=== PATIENT | female | born 1950 | race Caucasian/White ===

== ENCOUNTER 2024-05-07 11:07 | Emergency (ER) | payer MEDICARE, OTHER ==
[~2024-05-07] VITALS: Ht 157.5 cm; Wt 47.7 kg
[2024-05-07] MEDS ORDERED: NS 1,000 ML IV ONE (11:30)
[2024-05-07] MEDS ORDERED: Ondansetron 4 MG/2 ML VIAL IV ONE (11:45)
[2024-05-07] MEDS ORDERED: Morphine 4 MG/ML VIAL IV ONE ×2 (11:45→12:00)
[2024-05-07 11:49] LABS: BASO % 0.2 % (0.0-2.0); EOS % 0.1 % (0.0-4.0); GRAN # 14.7 K/mm3 (1.4-6.5); GRAN % 85.4 % (42.2-75.2); HEMATOCRIT 40.5 % (37.0-47.0); HEMOGLOBIN 14.1 g/dl (12.5-16.0); LYMPH # 1.3 K/mm3 (1.2-3.4); LYMPH % 7.7 % (20.0-51.0); MEAN CELL VOLUME 96 fl (80.0-100.0); MEAN CORPUSCULAR HEMOGLOBIN 33 pg (27-31); MEAN CORPUSCULAR HGB CONC 35 g/dl (33.0-37.0); MEAN PLATELET VOLUME 9.8 fl (7.4-10.4); MONO # 1.1 K/mm3 (0.1-0.6); MONO % 6.2 % (1.7-9.3); PLATELET COUNT 300 K/mm3 (130-400); RED BLOOD COUNT 4.23 M/mm3 (4.10-5.30)
[2024-05-07 12:02] LABS: ALBUMIN 4.2 g/dL (3.4-4.8); BILIRUBIN,TOTAL 1.4 mg/dL (0.2-1.2); CALCIUM 10.1 mg/dL (8.4-10.2); TOTAL PROTEIN 7.2 g/dl (6.2-8.1)
[2024-05-07 12:25] LABS: POTASSIUM 3.7 mEq/L (3.5-4.5)
[2024-05-07 12:38] LABS: CREATININE, serum 1.15 mg/dL (0.57-1.11)
[2024-05-07] MEDS ORDERED: NS 100 ML IV SCH (13:04)
[2024-05-07] MEDS ORDERED: Iohexol 300 - 100 ML VIAL IV ONE (13:04)
[2024-05-07 14:37] LABS: PH 6.5 (5.0-8.5); URINE APPEARANCE CLEAR (CLEAR/HAZY); URINE BLOOD 3+ (NEGATIVE); URINE COLOR YELLOW (YELLOW); URINE GLUCOSE NEGATIVE (NEGATIVE); URINE KETONE NEGATIVE (NEGATIVE); URINE NITRATE NEGATIVE (NEGATIVE); URINE PROTEIN(semi-quant) NEGATIVE (NEGATIVE); URINE UROBILINOGEN 0.2 E.U/dL (0.2-1.0)
[2024-05-07 14:48] LABS: COLLECTION METHOD CLEAN CATCH
[2024-05-07] MEDS ORDERED: ZOFRAN ODT4 MG PO ×2 (14:56→15:06)
[2024-05-07] MEDS ORDERED: NORCO 325 MG-51 TAB PO ×2 (14:56→15:06)
[2024-05-07] MEDS ORDERED: FLOMAX 0.40.4 MG/CAP PO ×2 (14:56→15:06)
[2024-05-07 15:24] VITALS: BP 163/82; PULSE 63
== END 2024-05-07 15:27 | disposition home or self-care (01) ==
LOC: COL.ER 11:07
PROVIDERS: Personal Emergency Response Attendant
DX: N13.2 Hydronephrosis with renal and ureteral calculous obstruction (principal)
CPT/HCPCS: J2270; J2405; J7030; Q9967